=== PATIENT | female | born 1990 | race Caucasian/White ===

== ENCOUNTER → 2020-03-27 18:17 | Outpatient (BNVA) | payer OTHER, SELFPAY | PROVIDERS: Visit Provider Nurse Practitioner Family | DX: Z11.59 Encounter for screening for other viral diseases (principal) | CPT/HCPCS: 87635 ==

== ENCOUNTER → 2020-06-24 18:00 | Outpatient (BNVA) | payer OTHER, SELFPAY | PROVIDERS: Visit Provider Nurse Practitioner Family | DX: Z20.828 Contact with and (suspected) exposure to other viral communicable diseases (principal) | CPT/HCPCS: 87426 ==

== ENCOUNTER → 2020-10-28 15:04 | Outpatient (BNVA) | payer SELFPAY | DX: J02.9 Acute pharyngitis, unspecified (principal) | CPT/HCPCS: 87071; 87880 ==

== ENCOUNTER → 2020-12-24 10:55 | Outpatient (BNVA) | payer OTHER, SELFPAY | PROVIDERS: Visit Provider Nurse Practitioner Family | DX: Z20.822 Contact with and (suspected) exposure to COVID-19 (principal) | CPT/HCPCS: 87426 ==

== ENCOUNTER 2021-07-28 08:23 | Emergency (ER) | payer OTHER, SELFPAY ==
[2021-07-28 08:24] VITALS: BP 120/80; PULSE 87; RESP 18; TEMP 36.8; O2SAT 100; BMI 33.6
--- NOTE | 2021-07-28 08:34 | XR_ITS ---
WS: [id number] PORTABLE CHEST HISTORY: dyspnea/cough COMPARISON: None available. Lungs are clear and well expanded. No pleural effusion or pneumothorax. Cardiac size: Normal. Mediastinum/Aorta: Normal mediastinum. No osseous abnormality seen. XR/XR chest 1V portable [id number] IMPRESSION: Unremarkable portable chest.
[2021-07-28] MEDS: famotidine 20 mg/2 mL INJ 40 MG IVP (08:48)
[2021-07-28] MEDS: dexamethasone 10 mg/mL INJ IVP (08:48)
[2021-07-28 08:57] LABS: Basophils % 0.2 %; Eosinophils # 0.1 10^3/uL (0.0-0.8); Eosinophils % 0.7 %; Hematocrit 39.8 % (37.0-47.0); Hemoglobin 13.2 g/dL (11.5-15.3); Lymphocytes # 3.5 10^3/uL (0.8-4.8); Mean Corpuscular HGB Conc 33.2 g/dL (30.0-36.0); Mean Corpuscular Hemoglobin 30.3 pg (28.0-34.0); Mean Corpuscular Volume 91.3 fl (81-99); Mean Platelet Volume 9.2 fL (7.4-10.4); Monocytes # 0.9 10^3/uL (0.2-0.9); Monocytes % 6.4 %; Neutrophils # 9.95 10^3/uL (1.8-7.7); Neutrophils % 68.3 %; Nucleated Red Blood Cells % 0 %; Platelet Count 373 10^3/cmm (130-400); Red Blood Count 4.36 10^6/uL (4.1-5.3); Red Cell Distribution Width 13.2 % (12.1-15.1); White Blood Count 14.6 10^3/uL (4.0-10.0)
[2021-07-28 09:12] LABS: ABG PCO2 37.1 mmHg (35-45); ABG PH Result 7.42 (7.35-7.45); Alveolar-Arterial Oxygen Gradi 7.3 mmHg (5-10); Arterial Blood Gas Hematocrit 38.9 % (37-47); Base Excess ABG 0.1 mmol/L (-2.0-2.0); Blood Gas Operator Identificat glc; Blood Gas Sample Site Brachial, right; Carboxyhemoglobin 0.9 %THgb (0.4-20.1); HCO3 ABG 24.3 mmol/L (22-26); HGB O2 Sat 78.6 % (95-100); Ionized Calcium Level - ABG 1.2 mmol/L (1.1-1.4); Methemoglobin 0.7 % (0.4-1.5); Oxygen Device ROOM AIR; PO2 ABG 48.7 mmHg (80.0-100.0); Potassium Level - ABG 3.7 mmol/L (3.5-5.0); Total Hemoglobin 12.7 g/dL (12-16)
[2021-07-28 09:19] LABS: Alanine Aminotransferase 20 U/L (0-33); Albumin Level 4.5 g/dL (3.5-5.2); Alkaline Phosphatase 61 IU/L (35-105); Anion Gap 15.6 (5-19); Aspartate Amino Transferase 12 U/L (0-32); Blood Urea Nitrogen 11 mg/dL (6-20); Calcium 9.3 mg/dL (8.5-10.5); Carbon Dioxide 22 mmol/L (22-29); Chloride 106 mmol/L (98-107); Globulin 2.5 g/dL (1.3-4.6); Glomerular Filtration Rate 98.9 mL/min (90-130); Glucose 91 mg/dL (65-115); Osmolality Calculated 289 mOsm/kg (285-295); Potassium 3.6 mmol/L (3.5-5.1); Sodium 140 mmol/L (136-145); Total Bilirubin 0.2 mg/dL (0.15-1.2)
--- NOTE | 2021-07-28 09:55 | W.ED.ALLEREA ---
HPI - Allergic Reaction General: Chief complaint: Allergic Reaction Stated complaint: ALLERGIC RXN Time Seen by Provider: 07/28/21 08:25 Source: patient Mode of arrival: EMS Limitations: no limitations History of Present Illness: HPI narrative: 31-year-old female presents emergency room via EMS complaining of a rash. She was seen 2 days ago at an outside emergency room and was given steroids antihistamines. She has an isolated rash on the forearm. She is here in primary care doctor they did do some lab testing evidently had ordered an EpiPen but she had not picked that up. This morning the rash on her arms was worse. She did not use the EpiPen she had taken some Benadryl and the steroid she had been given unknown specifically what triggered the event. MD complaint: allergic reaction and hives Onset (ago): day(s) Exposure: unknown Associated symptoms: Reports itching and lip swelling; Deny abdominal pain, difficulty breathing, dysphagia, dizziness, facial swelling, hoarseness, nausea, rash, tongue swelling or vomiting Severity: mild Treatment prior to arrival: benadryl and steroids Previous Allergic Reaction History: prior ED visit(s) Review of Systems Const: Denies: fever(s), chills, body aches, change in appetite, fatigue or malaise ENMT: Denies: hoarseness Card: Denies: chest pain, edema, dyspnea on exertion or orthopnea Resp: Denies: dyspnea, productive cough or non-productive cough GI: Denies: abdominal pain, nausea, vomiting or dysphagia : Denies: flank pain, difficulty voiding, dysuria, urinary frequency or urinary urgency Skin/Breast: Denies: rash or pruritus Neuro: Denies: dizziness All/Imm: Denies: tongue swelling or facial swelling PFSH ED PFSH: Medical History (Updated 07/28/21 @ 15:08 by Corby Rushing DO) Allergic reaction Social History (Updated 10/28/20 @ 14:57 by Lotus Eric LPN) Smoking and tobacco status: never smoked Physical Exam Const: COMMON NORMALS: no acute distress GENERAL APPEARANCE: cooperative and comfortable ORIENTATION/CONSCIOUSNESS: Yes awake, Yes oriented to person, Yes oriented to place and Yes oriented to time HENMT: COMMON NORMALS: normocephalic, atraumatic, hearing grossly normal bilaterally, external ears normal, EAC's normal, TM's normal bilaterally, Normal nasal mucous membranes and turbinates present, moist oral mucous membranes and oropharynx normal HEAD & SCALP: normocephalic and atraumatic NOSE: Normal nasal mucous membranes and turbinates present EXTERNAL EAR: Yes external ears normal EXTERNAL AUDITORY CANAL: EAC's normal TYMPANIC MEMBRANE: TM's normal bilaterally Eye: COMMON NORMALS: Equal, round and reactive pupils present, EOMs intact bilaterally, conjunctivae normal and no scleral icterus CONJUNCTIVA: Yes conjunctivae normal PUPIL: Yes Equal, round and reactive pupils present OTHER: Mild swelling of the upper lip Neck/C-Spine: COMMON NORMALS: full ROM, no lymphadenopathy, supple and no JVD Resp: COMMON NORMALS: normal respiratory effort, No retractions, No use of accessory muscles and clear to auscultation bilaterally AUSCULTATION: clear to auscultation bilaterally Cardio: COMMON NORMALS: no JVD, regular rate, regular rhythm and No murmurs present (Cardio) RATE: regular rate RHYTHM: regular rhythm GI: COMMON NORMALS: Soft to palpation and No hepatosplenomegaly present AUSCULTATION: Yes normoactive bowel sounds PALPATION: Yes Soft to palpation, No Tenderness to palpation present (GI), No Guarding due to palpation present (GI) and Yes No hepatosplenomegaly present Extremity: COMMON NORMALS: normal to inspection, capillary refill normal, no clubbing, cyanosis or edema, no calf tenderness and no pedal edema Neuro: SENSORIUM/ORIENTATION: Yes oriented to person, Yes oriented to place and Yes oriented to time Skin: OTHER: Urticarial wheal and flare on the forearms prickly on the volar surface bilaterally extending medially to the distal portion of the upper arm. None on the trunk at this time patient reports some in the groin creases none on the lower extremities. Course Vital Signs: Vital signs: Vital Signs Temperature 98.3 F 07/28/21 08:24 Pulse Rate 87 07/28/21 08:24 Respiratory Rate 18 07/28/21 08:24 Blood Pressure 120/80 07/28/21 08:24 Pulse Oximetry 100 07/28/21 08:24 MDM - Allergic Reaction Medical Decision Making FacialPatient has no wheezing or rhonchi swelling little bit restricted to the upper lip but very mild no oropharyngeal swelling there is no stridor. He monitored for times not had any difficulty breathing or with of respiratory compromise. At this point do not think epinephrine would be indicated and think she can safely be discharged home continue antihistamines or can increase her steroids she is a little frustrated with this. And I do understand her concern and spent a long time discussing recommend significantly increasing the steroid dose and doing a longer taper. Encouraged her to follow-up with her primary care doctor to get set up with an food service steward if any worsening or change symptoms return. Medical Records I reviewed the patient's medical records. Lab Data I reviewed the patient's lab results. : 07/28/21 08:28 07/28/21 08:28 Radiology Impressions Chest X-Ray 07/28/21 08:34 IMPRESSION: Unremarkable portable chest. Laboratory Results WBC 14.6 10^3/uL (4.0-10.0) H 07/28/21 08:28 RBC 4.36 10^6/uL (4.1-5.3) 07/28/21 08:28 Hgb 13.2 g/dL (11.5-15.3) 07/28/21 08:28 Hct 39.8 % (37.0-47.0) 07/28/21 08:28 MCV 91.3 fl (81-99) 07/28/21 08:28 MCH 30.3 pg (28.0-34.0) 07/28/21 08:28 MCHC 33.2 g/dL (30.0-36.0) 07/28/21 08:28 RDW 13.2 % (12.1-15.1) 07/28/21 08:28 Plt Count 373 10^3/cmm (130-400) 07/28/21 08:28 MPV 9.2 fL (7.4-10.4) 07/28/21 08:28 Neut % (Auto) 68.3 % 07/28/21 08:28 Lymph % (Auto) 24.0 % 07/28/21 08:28 [place] % (Auto) 6.4 % 07/28/21 08:28 Eos % (Auto) 0.7 % 07/28/21 08:28 Baso % (Auto) 0.2 % 07/28/21 08:28 Neut # (Auto) 9.95 10^3/uL (1.8-7.7) H 07/28/21 08: Lymph # (Auto) 3.5 10^3/uL (0.8-4.8) 07/28/21: [place] # (Auto) 0.9 10^3/uL (0.2-0.9) 07/28/21 08: Eos # (Auto) 0.1 10^3/uL (0.0-0.8) 07/28/21: Baso # (Auto) 0.0 10^3/uL (0.0-0.1) 07/28/21: Nucleated RBC % (auto) 0 % 07/28/21: Nucleated RBCs # 0.0 /100WBC 07/28/21: Specimen Type Venous 07/28/21 09:04 Sample Site Brachial, right 07/28/21 09:04 ABG pH 7.42 (7.35-7.45) 07/28/21 09:04 ABG pCO2 37.1 mmHg (35-45) 07/28/21 09:04 ABG pO2 48.7 mmHg (80.0-100.0) L 07/28/21 09:04 ABG HCO3 24.3 mmol/L (22-26) 07/28/21 09:04 ABG O2 Saturation 80.0 07/28/21 09:04 ABG Base Excess 0.1 mmol/L (-2.0-2.0) 07/28/21 09:04 Fred Test N/a 07/28/21 09:04 A-a O2 Gradient 7.3 mmHg (5-10) 07/28/21 09:04 Hematocrit 38.9 % (37-47) 07/28/21 09:04 Hgb O2 Saturation 78.6 % (95-100) L 07/28/21 09:04 Carboxyhemoglobin 0.9 %THgb (0.4-20.1) 07/28/21 09:04 Methemoglobin 0.7 % (0.4-1.5) 07/28/21 09:04 Total Hemoglobin 12.7 g/dL (12-16) 07/28/21 09:04 Sodium 142.0 mmol/L (131-143) 07/28/21 09:04 Potassium 3.7 mmol/L (3.5-5.0) 07/28/21 09:04 Glucose 87.0 mg/dL (70-115) 07/28/21 09:04 Ionized Calcium 1.2 mmol/L (1.1-1.4) 07/28/21 09:04 O2 Delivery Device Room air 07/28/21 09:04 FiO2 21.0 % 07/28/21 09:04 Medical I D Sales ID glc 07/28/21 09:04 Sodium 140 mmol/L (136-145) 07/28/21 08:28 Potassium 3.6 mmol/L (3.5-5.1) 07/28/21 08:28 Chloride 106 mmol/L (98-107) 07/28/21 08:28 Carbon Dioxide 22 mmol/L (22-29) 07/28/21 08:28 Anion Gap 15.6 (5-19) 07/28/21 08:28 BUN 11 mg/dL (6-20) 07/28/21 08:28 Creatinine 0.7 mg/dL (0.5-0.9) 07/28/21 08:28 GFR Calculation 98.9 mL/min (90-130) 07/28/21 08:28 Glucose 91 mg/dL (65-115) 07/28/21 08:28 Calculated Osmolality 289 mOsm/kg (285-295) 07/28/21 08:28 Calcium 9.3 mg/dL (8.5-10.5) 07/28/21 08:28 Total Bilirubin 0.2 mg/dL (0.15-1.2) 07/28/21 08:28 AST 12 U/L (0-32) 07/28/21 08:28 ALT 20 U/L (0-33) 07/28/21 08:28 Alkaline Phosphatase 61 IU/L (35-105) 07/28/21 08:28 Total Protein 7.0 g/dL (6.6-8.7) 07/28/21 08:28 Albumin 4.5 g/dL (3.5-5.2) 07/28/21 08:28 Globulin 2.5 g/dL (1.3-4.6) 07/28/21 08:28 Discharge Plan Discharge Patient Disposition: Home Clinical Impression: Allergic reaction Condition: Stable Prescriptions: New prednisone 20 mg tablet 20 mg PO TID Qty: 30 0RF Rx Instructions: 2 po BID x 5 days, 1 po tID x 5 days, 1 po BID x 3days, 1 po qd x 3 days EpiPen 2-Luciano 0.3 mg/0.3 mL auto-injector 0.3 mg IM Q10M PRN (Reason: anaphylaxis) Qty: 2 0RF Rx Instructions: not to exceed 6 doses per episode Discharge Orders: Discharge ED (Routine); Ordered 07/28/21 Ordered By: Corby Rushing Activity Restrictions/Additional Instructions: Increase steroids as prescription is written for. Continue to use hydroxyzine as needed. Follow-up with your primary care doctor to discuss possible referral to food service steward. You were given patient instructions on anaphylaxis for education for what to watch for. There was no signs of an anaphylactic reaction at the time you were seen in the emergency room today. This will help guide you as to when to use the epinephrine pen. Return if you have worsening problems particularly difficulty breathing. Coding Level of Care Code ED Supervisor [employer] for Stephanie Elias
[2021-07-28 10:35] LABS: Blood Gas Sample Type Venous
[2021-07-28] MEDS: diphenhydrAMINE 50 mg/mL SDV 1mL IM (11:16)
== END 2021-07-28 11:54 | disposition home or self-care (01) ==
PROVIDERS: Emergency Provider Family Medicine
DX: T78.40XA Allergy, unspecified, initial encounter (principal)
CPT/HCPCS: 36600; 71045; 80051; 80053; 82330; 82805; 85025; 96372; 96374; 96375; 99283; J1100; J1200; J3490

== ENCOUNTER → 2021-12-29 11:21 | Outpatient (BNVA) | payer OTHER, SELFPAY | PROVIDERS: Visit Provider Registered Nurse | DX: Z01.419 Encounter for gynecological examination (general) (routine) without abnormal findings (principal); I10 Essential (primary) hypertension | CPT/HCPCS: 88175 ==

== ENCOUNTER → 2022-01-21 11:44 | Outpatient (BNVA) | payer OTHER, SELFPAY | PROVIDERS: Visit Provider Registered Nurse | DX: Z91.018 Allergy to other foods (principal); T78.1XXA Other adverse food reactions, not elsewhere classified, initial encounter; Z71.3 Dietary counseling and surveillance; I10 Essential (primary) hypertension | CPT/HCPCS: 85025; 86003; 86008 ==

== ENCOUNTER 2022-11-04 15:07 | Outpatient (CLI) | payer OTHER, SELFPAY ==
[2022-11-04 16:20] LABS: Basophils # 0.1 10^3/uL (0.0-0.1); Basophils % 0.7 %; Eosinophils # 0.2 10^3/uL (0.0-0.8); Eosinophils % 3.1 %; Hematocrit 38.9 % (37.0-47.0); Hemoglobin 13.2 g/dL (11.5-15.3); Lymphocytes # 2.3 10^3/uL (0.8-4.8); Lymphocytes % 30.9 %; Mean Corpuscular HGB Conc 33.9 g/dL (30.0-36.0); Mean Corpuscular Volume 88.4 fl (81-99); Mean Platelet Volume 9.6 fL (7.4-10.4); Monocytes # 0.5 10^3/uL (0.2-0.9); Monocytes % 6.2 %; Nucleated Red Blood Cells % 0 %; Platelet Count 354 10^3/cmm (130-400); Red Cell Distribution Width 12.7 % (12.1-15.1); White Blood Count 7.5 10^3/uL (4.0-10.0)
[2022-11-04 16:31] LABS: Ferritin 29 ng/mL (15-150)
== END 2022-11-04 15:08 | disposition home or self-care (01) ==
LOC: LAB 15:32
PROVIDERS: PCP Nurse Practitioner Family; Visit Provider Nurse Practitioner Family
DX: Z01.89 Encounter for other specified special examinations (principal)
CPT/HCPCS: 82728; 85025

== ENCOUNTER 2024-10-12 10:38 | Outpatient (CLI) | payer BC, SELFPAY ==
[2024-10-12 11:31] LABS: Basophils # 0.1 10^3/uL (0.0-0.1); Basophils % 0.6 %; Eosinophils # 0.2 10^3/uL (0.0-0.8); Eosinophils % 1.9 %; Hematocrit 37.9 % (36-47); Lymphocytes % 22.8 %; Mean Corpuscular Hemoglobin 30.6 pg (27-33); Mean Corpuscular Volume 89.8 fl (85-98); Mean Platelet Volume 9.1 fL (7.4-10.4); Monocytes # 0.6 10^3/uL (0.2-0.9); Monocytes % 6.7 %; Neutrophils # 5.83 10^3/uL (1.8-7.7); Neutrophils % 67.9 %; Nucleated Red Blood Cells % 0 %; Platelet Count 316 10^3/cmm (157-399); Red Blood Count 4.22 10^6/uL (3.85-5.65); Red Cell Distribution Width 12.6 % (12.1-15.1); White Blood Count 8.57 10^3/uL (3.29-11.43)
[2024-10-12 11:55] LABS: Alanine Aminotransferase 14 U/L (0-33); Albumin Level 4.4 g/dL (3.5-5.2); Alkaline Phosphatase 45 U/L (35-105); Anion Gap 15.8 (5-19); Aspartate Amino Transferase 16 U/L (0-32); Blood Urea Nitrogen 13 mg/dL (6-20); Calcium 9.3 mg/dL (8.5-10.5); Carbon Dioxide 22 mmol/L (22-29); Chloride 104 mmol/L (98-107); Chol HDL Ratio 3.15 mg/dL (0.0-4.40); Cholesterol 151 mg/dL (0-200); Ferritin 37 ng/mL (15-150); Globulin 2.9 g/dL (1.3-4.6); Glomerular Filtration Rate 115.9 mL/min (90-130); Glucose 92 mg/dL (65-115); HDL Cholesterol 48 mg/dL (60-100); Iron 123 ug/dL (37-145); LDL Cholesterol Calculated 89 mg/dL (50-129); LDL HDL Ratio 1.85 RATIO (0.00-3.22); Lactate Dehydrogenase 106 U/L (135-214); Magnesium 1.9 mg/dL (1.7-2.3); Osmolality Calculated 286 mOsm/kg (285-295); Potassium 3.8 mmol/L (3.5-5.1); Sodium 138 mmol/L (136-145); Total Bilirubin 0.3 mg/dL (0.15-1.2); Total Iron Binding Capacity 361 mcg/dl; Total Protein 7.3 g/dL (6.6-8.7); Triglycerides 71 mg/dL (0-150); Unsaturated Iron Binding 238 ug/dL (112-347)
[2024-10-12 12:10] LABS: 25 Hydroxy Vitamin D 25 ng/mL (30-100)
== END 2024-10-12 10:39 | disposition home or self-care (01) ==
PROVIDERS: PCP Nurse Practitioner Family; Visit Provider Nurse Practitioner Family
DX: Z00.00 Encounter for general adult medical examination without abnormal findings (principal)
CPT/HCPCS: 36415; 80053; 80061; 82248; 82306; 82728; 83540; 83550; 83615; 83735; 85025

== ENCOUNTER → 2025-01-02 12:39 | Outpatient (BNVA) | payer BC, SELFPAY | PROVIDERS: PCP Nurse Practitioner Family; Visit Provider Nurse Practitioner Women's Health | DX: R10.2 Pelvic and perineal pain (principal) | CPT/HCPCS: 81000; 87086; 87624 ==

== ENCOUNTER 2025-01-18 07:08 | Outpatient (CLI) | payer BC, SELFPAY ==
--- NOTE | 2025-01-18 07:15 | MR_ITS ---
WS: [id number] MRI PELVIS WITH AND WITHOUT CONTRAST. COMPARISON: None Multiplanar, multisequence imaging is performed with and without contrast. MultiHance 17 mL. History: Endometriosis, pelvic pain. No prior surgery. Uterus: Midline and retroflexed. Uterus measures 9.0 x 5.3 x 6.8 cm. Single component of adenomyosis noted measuring 5 mm along the posterior inferior endometrium. No fibroids are identified within the myometrium. Endometrium is normal at 4.3 mm in diameter. RIGHT ovary: Normal size ovary measures 4.2 x 2.0 x 2.4 cm. There are several small peripheral follicles scattered within the ovary. Complex follicle within the ovary. No T1 hyperintense signal within or surrounding the ovary. LEFT ovary/adnexa: There is a large heterogeneous mass in the LEFT adnexa which is inseparable from the ovary. This complex collection extends into the cul-de-sac. The ovary is probably part of this mass. There are T1 hyperintense foci in the LEFT adnexa. The largest T1 hyperintense focus 2.6 cm. Smaller foci of variable signal intensity in the LEFT adnexa one with a fluid/fluid level consistent with endometrioma. The entire adnexal mass measures 4.4 x 4.3 x 5.0 cm. Normal ovary contained within this collection is difficult to visualize. No additional T1 hyperintense foci were noted within the pelvis. No free fluid. No additional areas of abnormal enhancement within the pelvis. There is no mass. No GI tract obstruction. MR/MR pelvis wo/w con [id number] IMPRESSION: 1. Normal size uterus slightly retroverted. 2. Single focus of adenomyosis along the posterior inferior endometrium. 3. There is a large complex mass within the LEFT adnexa extending into the cul -de-sac with T1 hyperintense foci consistent with collection of endometriosis. The ovary is not identified as a separate structure. This entire LEFT ovarian/a dnexal endometrioma collection measures 4.4 x 4.3 x 5.0 cm. 4. No free fluid. 5. No additional foci in the pelvis to suggest adjacent endometriomas.
[2025-01-18] MEDS: gadobenate dimeglumine 20 mL vial IV (09:17)
== END 2025-01-18 07:09 | disposition home or self-care (01) ==
PROVIDERS: PCP Nurse Practitioner Family; Visit Provider Nurse Practitioner Women's Health
DX: N80.9 Endometriosis, unspecified (principal); R10.2 Pelvic and perineal pain; R93.89 Abnormal findings on diagnostic imaging of other specified body structures
CPT/HCPCS: 72197

== ENCOUNTER 2025-02-20 15:29 | Outpatient (CLI) | payer BC, SELFPAY ==
[2025-02-20 17:40] LABS: Thyroid Stimulating Hormone 0.72 uIU/mL (0.27-4.20)
== END 2025-02-20 15:30 | disposition home or self-care (01) ==
LOC: LAB 15:38
PROVIDERS: PCP Nurse Practitioner Family; Visit Provider Family Medicine
DX: E04.9 Nontoxic goiter, unspecified (principal)
CPT/HCPCS: 36415; 84443

== ENCOUNTER 2025-03-08 19:04 | Outpatient (CLI) | payer BC, SELFPAY ==
[2025-03-09 00:46] LABS: Free T4 Free Thyroxine 1.28 ng/dL (0.82-1.77)
[2025-03-13 15:19] LABS: Thyroid Peroxidase Antobodies 1 IU/mL (<9)
== END 2025-03-08 19:05 | disposition home or self-care (01) ==
PROVIDERS: PCP Nurse Practitioner Family; Visit Provider Family Medicine
DX: Z01.89 Encounter for other specified special examinations (principal)
CPT/HCPCS: 36415; 84439; 84481; 86376; 86800

== ENCOUNTER 2025-03-10 16:03 | Outpatient (CLI) | payer BC, SELFPAY ==
--- NOTE | 2025-03-10 16:18 | XRR_ITS ---
PROCEDURE INFORMATION: Exam: XR Abdomen Exam date and time: 03/10/2025 4:24 PM Age: 35 years old Clinical indication: Other: Access for impaction TECHNIQUE: Imaging protocol: Radiologic exam of the abdomen. Views: 2 Views. Upright and supine views. COMPARISON: MR pelvis wo/w con [id number] 01/18/2025 7:31 AM FINDINGS: Gastrointestinal tract: Normal. No bowel dilation. Intraperitoneal space: Normal. No free air. Bones/joints: Unremarkable for age. XR/XR acute abdomen series [id number] IMPRESSION: No acute findings.
== END 2025-03-10 16:04 | disposition home or self-care (01) ==
PROVIDERS: PCP Nurse Practitioner Family; Visit Provider Nurse Practitioner Family
DX: K56.41 Fecal impaction (principal)
CPT/HCPCS: 74022

== ENCOUNTER 2025-03-30 23:49 | Emergency (ER) | payer BC, SELFPAY ==
[2025-03-30 23:51] VITALS: BP 148/95; PULSE 72; RESP 16; TEMP 36.7; O2SAT 100; BMI 28.6
--- OUTSIDE RECORDS SUMMARY | 2025-03-30 23:55 | XMS_ITS | Clinical Summary ---
Author Organization [facility] Address [address] [place] [address] Phone Care Team Providers Care Apple Press Operator Name Role Phone Sylwia Bryant [facility] Primary Care Provider + Allergies Active Allergy Reactions Criticality Noted Date Comments Znmrl-P-Hrpblyybhbgwi Other 06/01/2023 Alpha-Gal (Hqozxtpiw-Dyswq-2,3-Galact ose) Unknown 01/02/2025 Bupropion Anaphylaxis High 06/01/2023 Other Reaction(s): ALGY-Difficulty Breathing Gelatin Other Low 07/19/2022 Other Reaction(s): Abdominal Pain Losartan Other Low 07/19/2022 Other Reaction(s): Abdominal Pain Bupropion Hcl Anaphylaxis High 06/01/2023 Azithromycin Other Medium 06/01/2023 Lips burned and blistered Medications EPINEPHrine (Epipen) 0.3 mg/0.3 mL injection syringeIndicat ions:Food allergy Inject 0.3 mL (0.3 mg total) into the shoulder, thigh, or buttocks if needed for anaphylaxis. Call 911 after use. 2 each 3 Active Additional Information Patient not taking.Informant: Self, Reported on 02/22/2025 metoprolol tartrate (Lopressor) 25 mg tablet Take 12.5 mg by mouth 1 (one) time each day. 3 Active methylphenidat e (Ritalin) 5 mg tablet Take 5 mg by mouth 2 (two) times a day. 5 Active HYDROcodone-ac etaminophen (Angola) 5-325 mg tablet Take 1 tablet by mouth every 6 (six) hours if needed. Active desvenlafaxine (Pristiq) 50 mg 24 hr tablet Take 50 mg by mouth 1 (one) time each day. Active gabapentin (Neurontin) 100 mg capsule Take 100 mg by mouth 3 (three) times a day. Active oxyCODONE (Roxicodone) 5 mg immediate release tabletIndicati ons:pain Take 1 tablet (5 mg total) by mouth every 6 (six) hours if needed for severe pain (7-10) for up to 10 doses. 10 tablet Active Additional Information Patient not taking.Reported on 02/22/2025 methylPREDNISo lone (Medrol Dospak) 4 mg tabletsIndicat ions:Hives Follow schedule on package instructions 21 tablet 5 03/01/20 Active Problems Problem Noted Date Diagnosed Date Hives 02/22/2025 Left ovarian cyst 01/29/2025 Endometriosis 10/03/2024 Pelvic pain 05/04/2023 Dysmenorrhea 05/04/2023 Encounters Date Type Department Care Team Description 02/22/2025 3:00 PM CDT [facility] [address] [address] Elbert Ortez MD Multiple thyroid nodules (Primary Dx) 02/22/2025 Orders Only [facility] [address] [address] Gemma Macias NP Hives (Primary Dx) 02/21/2025 Telephone [facility] [address] [address] Elbert Ortez MD ultra sound images 02/08/2025 Telephone [facility] [address] [address] New Kelly MD ED report 02/07/2025 2:06 PM CDT - 02/07/2025 4:19 PM CDT Emergency [facility] Emergency Department [address] [address] Discharge Disposition: Left Without Being Seen 02/07/2025 1:30 PM CDT Office Visit [facility] [address] [place] [address] New Kelly MD Postoperative examination (Primary Dx); Weakness of both lower extremities; SOB (shortness of breath) 02/01/2025 1:35 PM CDT - 02/01/2025 3:15 PM CDT Surgery OPERATING ROOM-[address] [address] New Kelly MD ROBOTIC ASSISTED DIAGNOSTIC LAPAROSCOPY [22758 (CPT )] 02/01/2025 1:27 PM CDT Anesthesia Event OPERATING ROOM-[address] [address] Richmond Gant, Baudilio Alberts, SENIOR AUTOMATION ENGINEER 02/01/2025 9:44 AM CDT - 02/01/2025 4:30 PM CDT Hospital Encounter OPERATING ROOM-[address] [address] New Kelly MD Endometriosis (Primary Dx); Pelvic pain; Left ovarian cyst; Dysmenorrhea Discharge Disposition: Discharged to Home or Self Care (Routine Discharge) 01/28/2025 2:30 PM CDT Office Visit [facility] BU[facility] [address] [place] [address] New Kelly MD Endometriosis (Primary Dx); Pelvic pain; Left ovarian cyst 01/24/2025 Telephone [facility] [address] [place] [address] New Kelly MD earlier appt 01/18/2025 Telephone [facility] [address] [place] [address] New Kelly MD mass on ovary 01/01/2025 9:40 AM CDT Lab LAB [address] [address] Fatigue (Primary Dx) from Last 3 Months Family History Medical History Relation Comments Hypertension Father Cancer Maternal Grandfather No Known Problems Mother Cancer Paternal Grandmother Anesthesia problems Neg Hx Breast cancer Neg Hx Colon cancer Neg Hx Malig Hypertension Neg Hx Ovarian cancer Neg Hx Uterine cancer Neg Hx Relation Status Comments Father Alive Maternal Grandfather Mother Alive Paternal Grandmother Social History Tobacco Use Types Packs/Day Years Used Date Smoking Tobacco: Former Cigarettes 0.5 6 2 005 - 2011 Passive Smoke Exposure: Past Smokeless Tobacco: Never Tobacco Cessation:Counseling Given: Not Answered Alcohol Use Standard Drinks/Week Comments Not Currently 0 (1 standard drink = 0.6 oz pur e alcohol) PHQ-2 Answer Date Recorded Patient Health Questionnaire-2 Score 0 01/28/2025 [facility] - Mental Health Answer Date Recorde d Little interest or pleasure in doing things Not at all 01/28/2025 Feeling down, depressed, or hopeless Not at all 01/28/2025 Feeling of Stress Not on file 01/28/2025 AUDIT-C Answer Date Recorded Q1: How often do you have a drink containing alcohol? Monthly or less 01/30/2025 Q2: How many drinks containi ng alcohol do you have on a typical day when you are drinking? Patient does not drink Q3: How often do you have si x or more drinks on one occasion? Never 01/30/2025 Comments No Sex and Gender Information Value Date Recorded Sex Assigned at Not on file Legal Sex Female 11:24 AM CDT Gender Identity Not on file Sexual Orientation Not on file Last Filed Vital Signs Vital Sign Reading Time Taken Comments Blood Pressure 137/87 02/22/2025 2:55 PM CDT Pulse 59 02/22/2025 2:55 PM CDT Temperature 36.4 C (97.6 F) 02/22/2025 2:55 PM CDT Respiratory Rate 19 02/22/2025 2:55 PM CDT Oxygen Saturation 99% 02/22/2025 2:55 PM CDT Inhaled Oxygen Concentration - - Weight 77.1 kg (170 lb) 02/22/2025 2:55 PM CDT Height 160 cm (5' 3 ) 02/22/2025 2:55 PM CDT Body Mass Index 30.11 02/22/2025 2:55 PM CDT Plan of Treatment Upcoming Encounters Date Type Department Care Team (Latest Contact Info) Description 04/03/2025 4:15 PM CUTTER MACHINE Office Visit [facility] [address] [place] [address] New Kelly MD [address] [place] [phone] 04/23/2025 9:30 AM CUTTER MACHINE Office Visit [facility] MEDICAL OFFICE [address] [address] New Kelly MD [address] [place] [phone] 04/23/2025 10:00 AM CUTTER MACHINE Appointment PREADMISSION TESTING - MOB [address] [place] [phone] 05/03/2025 7:30 AM CUTTER MACHINE Hospital Encounter OPERATING ROOM-[address] [address] New Kelly MD [address] [place] [phone] 05/03/2025 7:30 AM CUTTER MACHINE - 05/03/2025 9:20 AM CUTTER MACHINE Surgery OPERATING ROOM-[address] [address] New Kelly MD [address] [place] [phone] ROBOTIC LAP HYSTERECTOMY [[id number] (CPT )] 06/14/2025 9:30 AM CUTTER MACHINE Office Visit [facility] MEDICAL OFFICE [address] [address] Gemma Ma NP [address] [place] [phone] Scheduled Procedures Name Priority Associated Diagnoses Date/Ti sd ROBOTIC LAP HYSTERECTOMY Endometriosis Pelvic pain 05/03/2025 7:30 AM CUTTER MACHINE ROBOTIC LAP SALPINGECTOMY Endometriosis Pelvic pain 05/03/2025 7:30 AM CUTTER MACHINE Health Maintenance Due Date Last Done Comments Lipid Panel 1992 MMR Vaccines (1 of 1 - Standard series) 01/13/1993 Varicella Vaccines (1 of 2 - 13+ 2-dose series) 01/13/2005 Social Drivers of Health (SDoH) 01/13/2010 Hepatitis A Vaccines (1 of 2 - Risk 2-dose series) 01/13/2011 Hepatitis B Vaccines (1 of 3 - 19+ 3-dose series) 01/13/2011 Pap Smear 01/13/2013 HPV Vaccines (1 - 3-dose SCDM series) 01/13/2019 Cervical Cancer Screening 01/13/2022 HPV/Cotest 01/13/2022 COVID-19 Vaccine ( - season) 2025 Influenza Vaccine (#1) 2025 02/27/2015 Creatinine Level 01/01/2026 01/01/2025 Potassium Level 01/01/2026 01/01/2025 Depression Screening 01/29/2026 01/28/2025 DTaP,Tdap,and Td Vaccines (8 - Td or Tdap) 11/26/2032 11/26/2022, 05/22/2015, 10/02/1997, Additional history exists Pneumococcal Vaccine: 50+ Years (1 of 1 - PCV) 01/13/2042 Zoster Vaccines (1 of 2) 01/13/2042 RSV Vaccines (1 - 1-dose 75+ series) 01/13/2067 IPV Vaccines Completed 10/02/1997, 03/24, 1992, Additional history exists HIB Vaccines Aged Out No longer eligi ble based on patient's age to complete this topic Meningococcal B Vaccine Aged Out No l onger eligible based on patient's age to complete this topic Meningococcal Vaccine Aged Out No zaid génesis eligible based on patient's age to complete this topic Pneumococcal Vaccine Aged Out No long er eligible based on patient's age to complete this topic Rotavirus Vaccines Aged Out No longer eligible based on patient's age to complete this topic Goals Goal Patient Goal Type Associated Problems Recent Progress Patient-Stated? Author Autogenerat ed Goal Care Plan Autogenerated Problem No New Kelly MD Procedures Procedure Name Priority Date/Time Associated Diagnosis Comments ECG 12-LEAD STAT 02/07/2025 5:00 PM CDT IA AN ELECTIVE ENDOTRACHEAL AIRWAY Routine 02/01/2025 1:38 PM CDT IA LAPS ABD PRTM&OMENTUM DX W/WO SPEC BR/WA SPX 02/01/2025 1:29 PM CDT Endometriosis Pelvic pain Left ovarian cyst Special Needs Please have posterior cul de sac catheter available. , URINE STAT 02/01/2025 10:0 0 AM CDT IRON BINDING CAPACITY Routine 01/01/2025 10:22 AM CDT Fatigue IRON Routine 01/01/2025 10:22 AM CDT Fatigue CBC WITH AUTO DIFFERENTIAL Routine 01/01/2025 10:22 AM CDT Fatigue C-REACTIVE PROTEIN Routine 01/01/2025 10 :22 AM CDT Fatigue VITAMIN B12 Routine 01/01/2025 10:22 AM CDT Fatigue VITAMIN D 25 HYDROXY Routine 01/01/2025 10:22 AM CDT Fatigue SEDIMENTATION RATE Routine 01/01/2025 10 :22 AM CDT Fatigue FERRITIN Routine 01/01/2025 10:22 AM CDT Fatigue IRON AND TIBC Routine 01/01/2025 10:22 AM CDT Fatigue MAGNESIUM Routine 01/01/2025 10:22 AM CDT Fatigue LACTATE DEHYDROGENASE Routine 01/01/2025 10:22 AM CDT Fatigue BILIRUBIN, DIRECT Routine 01/01/2025 10: 22 AM CDT Fatigue CBC AND AUTO DIFFERENTIAL Routine 01/01/2025 10:22 AM CDT Fatigue COMPREHENSIVE METABOLIC PANEL Routine 01/01/2025 10:22 AM CDT Fatigue URINE CULTURE Routine 01/01/2025 10:22 AM CDT Fatigue from Last 3 Months Results * ECG 12 lead (02/07/2025 5:00 PM CDT) 02/07/2025 5:00 PM CDT Narrative [facility] - 02/07/2025 5:00 PM CDT Interpretive Statements Sinus rhythm Electronically Signed On 02-07-2025 17:00:02 CDT by José Mendoza MD Procedure Note José Mendoza MD - 02/07/2025 Interpretive Statements Sinus rhythm Electronically Signed On 02-07-2025 17:00:02 CDT by José Mendoza MD us Owen Camacho DO ECG ORDERABLES Edited Resul t - Final [facility] [address] [address] * IA AN ELECTIVE ENDOTRACHEAL AIRWAY (02/01/2025 1:38 PM CDT) Narrative Richmond Gant CRNA - 02/01/2025 1:38 PM CDT Richmond Gant CRNA 02/01/2025 1:50 PM Airway Date/Time: 02/01/2025 1:38 PM Reason: elective Airway not difficult General Information and Staff Patient location during procedure: OR Performed by: Richmond Gant CRNA Authorized by: New Kelly MD Patient Condition Indications for airway management: anesthesia Patient position: sniffing MILS maintained throughout Sedation level: deep Mask Ventilation Mask difficulty assessment: 1 - vent by mask Final Airway Details Preoxygenated: yes Final airway type: endotracheal airway Successful airway: ETT Cuffed: yes Successful intubation technique: direct laryngoscopy Adjuncts used in placement: intubating stylet Endotracheal tube insertion site: oral Blade: Og Blade size: #3 ETT size (mm): 7.0 Cormack-Lehane Classification: grade I - full view of glottis Placement verified by: chest auscultation and capnometry Measured from: teeth ETT to teeth (cm): 21 Ventilation between attempts: none Number of attempts at approach: 1 Number of other approaches attempted: 0 Additional Comments FELICIA Rizo New Kelly MD ANESTHESIA ORDERABLES Fin al Result * , urine (02/01/2025 10:00 AM CDT) [facility] URINE PREG TEST Negative Negative 02/01/2025 10:18 AM CDT [facility] Urine Urine specimen obtained by clean catch procedure / Unknown Non-blood Collection / Unknown 02/01/2025 10:00 AM CDT 02/01/2025 10:08 AM CDT New Kelly MD LAB URINE ORDERABLES Sosa l Result Performing Organization Address [facility] Co de Phone Number [facility] [address] [phone] * Iron Binding Capacity (01/01/2025 10:22 AM CDT) [facility] IRON BINDING CAPACITY 432 265 - 497 ug/dL LAB CHEMISTRY METHOD 01/01/2025 11:16 AM CDT [facility] Blood Venous blood specimen / Unknown Venipuncture / Unknown 01/01/2025 10:22 AM CDT 01/01/2025 10:22 AM CDT Dorian Angela DO LAB BLOOD ORDERABLES Sosa l Result Performing Organization Address City/[facility]/ZIP Co de Phone Number [facility] [address] [phone] * (ABNORMAL) CBC auto differential (01/01/2025 10:22 AM CDT) [facility] White Blood Count 6.7 4.0 - 11.4 K/mm3 01/01/2025 10:31 AM CDT [facility] Red Blood Count 4.16 3.93 - 5.22 M/mm3 01/01/2025 10:31 AM CDT [facility] Hemoglobin 12.6 11.2 - 15.7 g/dL 01/01/2025 10:31 AM [facility] Hematocrit 36.6 34.1 - 44.9 % 01/01/2025 10:31 AM [facility] Mean Cell Volume 88.1 81.6 - 97.4 fL 01/01/2025 10:31 AM [facility] MEAN CORPUSCULAR HEMOGLOBIN 30.3 26.7 - 32.8 pg 01/01/2025 10:31 AM [facility] Mean Corpuscular Hemoglobin Concentration 34.4 31.6 - 36.0 g/dL 01/01/2025 10:31 AM [facility] RED CELL DISTRIBUTION WIDTH-SD 40.7 35.6 - 49.5 fl 01/01/2025 10:31 AM [facility] Platelet Count 404 150 - 450 K/mm3 01/01/2025 10:31 AM [facility] Mean Platelet Volume 6.8(L) 7.0 - 10.2 fL 01/01/2025 10:31 AM [facility] ANC (AUTOMATED) 4.0 2.0 - 9.8 K/ul 01/01/2025 10:31 AM [facility] Lymphocytes % 30.7 10.1 - 46.5 % 01/01/2025 10:31 AM [facility] Monocytes % 5.9 3.2 - 12.9 % 01/01/2025 10:31 AM [facility] Neutrophils % 59.3 40.6 - 81.1 % 01/01/2025 10:31 AM [facility] Eosinophils % 3.0 0.0 - 4.2 % 01/01/2025 10:31 AM [facility] Basophils % 1.1 0.0 - 1.1 % 01/01/2025 10:31 AM [facility] Lymphocytes Absolute 2.1 0.6 - 3.6 K/uL 01/01/2025 10:31 AM [facility] Monocytes Absolute 0.4 0.3 - 1.1 K/uL 01/01/2025 10:31 AM [facility] Neutrophils Absolute 4.0 2.0 - 9.8 K/uL 01/01/2025 10:31 AM CDT [facility] Eosinophils Absolute 0.20 0.00 - 0.60 K/uL 01/01/2025 10:31 AM CDT [facility] Basophils Absolute 0.1 0.0 - 0.1 1000/uL 01/01/2025 10:31 AM CDT [facility] Nucleated RBC % 0.1 0.0 - 0.2 % 01/01/2025 10:31 AM CDT [facility] Nucleated RBC Absolute 0.00 0.00 - 0.03 K/ul 01/01/2025 10:31 AM CDT [facility] Blood Venous blood specimen / Unknown Venipuncture / Unknown 01/01/2025 10:22 AM CDT 01/01/2025 10:22 AM CDT Dorian Angela LAB BLOOD ORDERABLES Sosa l Result Performing Organization Address [facility]/ZIP Co de Phone Number [facility] [address] [address] * Vitamin D 25 hydroxy (01/01/2025 10:22 AM CDT) VITAMIN D 25-OH TOTAL 30.1 30.0 - 100.0 ng/mL 01/01/2025 11:07 AM CDT [facility] Blood Venous blood specimen / Unknown Venipuncture / Unknown 01/01/2025 10:22 AM CDT 01/01/2025 10:22 AM CDT Dorian Angela LAB BLOOD ORDERABLES Sosa l Result [facility] [address] [address] * Sedimentation Rate (01/01/2025 10:22 AM CDT) ERYTHROCYTE SEDIMENTATION RATE 6 0 - 20 mm/hr 01/01/2025 10:40 AM CDT [facility] Blood Venous blood specimen / Unknown Venipuncture / Unknown 01/01/2025 10:22 AM CDT 01/01/2025 10:22 AM CDT Dorian Chavez Angela LAB BLOOD ORDERABLES Sosa l Result Performing Organization Address [facility] de Phone Number [facility] [address] [place] [phone] * Urine culture (01/01/2025 10:22 AM CDT) Urine Culture No growth at 2 days ASHLEY 01/03/2025 1:29 PM CDT [facility] Urine Urine specimen obtained by clean catch procedure / Unknown Non-blood Collection / Unknown 01/01/2025 10:22 AM CDT 01/01/2025 10:22 AM CDT Dorian Scott Angela DO LAB MICROBIOLOGY - GENERA L ORDERABLES Final Result Performing Organization Address [facility] de Phone Number [facility] [address] [place] [phone] * C-Reactive Protein (01/01/2025 10:22 AM CDT) CRP <3 0 - 3 mg/L LAB CHEMISTRY METHOD 01/01/2025 11:06 AM CDT [facility] Blood Venous blood specimen / Unknown Venipuncture / Unknown 01/01/2025 10:22 AM CDT 01/01/2025 10:22 AM CDT Dorian Scott Angela DO LAB BLOOD ORDERABLES Sosa l Result Performing Organization Address City/[facility] de Phone Number [facility] [address] [place] [phone] * Magnesium (01/01/2025 10:22 AM CDT) Magnesium 2.1 1.7 - 2.8 mg/dL LAB CHEMISTRY METHOD 01/01/2025 11:40 AM CDT [facility] Blood Venous blood specimen / Unknown Venipuncture / Unknown 01/01/2025 10:22 AM CDT 01/01/2025 10:22 AM CDT Dorian Angela DO LAB BLOOD ORDERABLES Sosa l Result Performing Organization Address City/[facility]/ZIP Co de Phone Number [facility] [address] [place] [phone] * Lactate dehydrogenase (01/01/2025 10:22 AM CDT) Lactate Dehydrogenase 143 84 - 246 U/L LAB CHEMISTRY METHOD 01/01/2025 11:16 AM CDT [facility] Blood Venous blood specimen / Unknown Venipuncture / Unknown 01/01/2025 10:22 AM CDT 01/01/2025 10:22 AM CDT Dorian Angela DO LAB BLOOD ORDERABLES Sosa l Result Performing Organization Address [facility] Co de Phone Number [facility] [address] [place] [phone] * Iron (01/01/2025 10:22 AM CDT) Iron 44 37 - 170 ug/dL LAB CHEMISTRY METHOD 01/01/2025 11:18 AM CDT [facility] Blood Venous blood specimen / Unknown Venipuncture / Unknown 01/01/2025 10:22 AM CDT 01/01/2025 10:22 AM CDT Dorian Angela DO LAB BLOOD ORDERABLES Sosa l Result Performing Organization Address City/[facility]/ZIP Co de Phone Number [facility] [address] [place] [phone] * (ABNORMAL) Ferritin (01/01/2025 10:22 AM CDT) Ferritin 7(L) 8 - 252 ng/mL LAB CHEMISTRY METHOD 01/01/2025 11:21 AM CDT [facility] Blood Venous blood specimen / Unknown Venipuncture / Unknown 01/01/2025 10:22 AM CDT 01/01/2025 10:22 AM CDT Dorian Scott Angela DO LAB BLOOD ORDERABLES Sosa l Result Performing Organization Address City/[facility]/ZIP Co de Phone Number [facility] [address] [phone] * Vitamin B12 (01/01/2025 10:22 AM CDT) Vitamin B12 680 239 - 931 pg/mL LAB CHEMISTRY METHOD 01/01/2025 11:40 AM CDT [facility] Blood Venous blood specimen / Unknown Venipuncture / Unknown 01/01/2025 10:22 AM CDT 01/01/2025 10:22 AM CDT Dorian Angela DO LAB BLOOD ORDERABLES Sosa l Result Performing Organization Address [facility] Co de Phone Number [facility] [address] [phone] * Bilirubin, direct (01/01/2025 10:22 AM CDT) Bilirubin, Direct 0.08 0.00 - 0.20 mg/dL LAB CHEMISTRY METHOD 01/01/2025 11:08 AM CDT [facility] Blood Venous blood specimen / Unknown Venipuncture / Unknown 01/01/2025 10:22 AM CDT 01/01/2025 10:22 AM CDT Dorian Angela DO LAB BLOOD ORDERABLES Sosa l Result Performing Organization Address [facility]/ZIP Co de Phone Number [facility] [address] [phone] * (ABNORMAL) Comprehensive Metabolic Panel (01/01/2025 10:22 AM CDT) Glucose 89 70 - 100 mg/dL LAB CHEMISTRY METHOD 01/01/2025 11:13 AM CDT [facility] BUN 11 7 - 17 mg/dL LAB CHEMISTRY METHOD 01/01/2025 11:13 AM CDT [facility] Creatinine 0.75 0.52 - 1.04 mg/dl LAB CHEMISTRY METHOD 01/01/2025 11:13 AM CDT [facility] BUN/Creatinine Ratio 15 12 - 17 LAB CHEMISTRY METHOD 01/01/2025 11:13 AM CDT [facility] Sodium 136 135 - 145 mmol/L LAB CHEMISTRY METHOD 01/01/2025 11:13 AM CDT [facility] Potassium 4.2 3.6 - 5.0 mmol/L LAB CHEMISTRY METHOD 01/01/2025 11:13 AM CDT [facility] Chloride 108 101 - 111 mmol/L LAB CHEMISTRY METHOD 01/01/2025 11:13 AM [facility] Total Carbon Dioxide 27 22 - 30 mmol/L LAB CHEMISTRY METHOD 01/01/2025 11:13 AM [facility] Anion Gap 5(L) 9 - 17 mmol/L LAB CHEMISTRY METHOD 01/01/2025 11:13 AM [facility] Calcium 9.5 8.2 - 10.2 mg/dL LAB CHEMISTRY METHOD 01/01/2025 11:13 AM [facility] Total Protein, Serum 7.7 5.6 - 8.5 g/dL LAB CHEMISTRY METHOD 01/01/2025 11:13 AM [facility] Albumin 4.3 3.5 - 5.2 g/dL LAB CHEMISTRY METHOD 01/01/2025 11:13 AM [facility] GLOBULIN 3.4 2.1 - 3.8 g/dL LAB CHEMISTRY METHOD 01/01/2025 11:13 AM [facility] A/G Ratio 1.3(L) 1.4 - 1.7 LAB CHEMISTRY METHOD 01/01/2025 11:13 AM [facility] Bilirubin, Total 0.6 0.1 - 1.3 mg/dL LAB CHEMISTRY METHOD 01/01/2025 11:13 AM [facility] Alkaline Phosphatase 46 45 - 117 U/L LAB CHEMISTRY METHOD 01/01/2025 11:13 AM [facility] ALT (SGPT) 21 11 - 58 U/L LAB CHEMISTRY METHOD 01/01/2025 11:13 AM [facility] AST (SGOT) 13 9 - 55 U/L LAB CHEMISTRY METHOD 01/01/2025 11:13 AM [facility] eGFR >60 >=60 mL/min/1. 73 m2 LAB CHEMISTRY METHOD 01/01/2025 11:13 AM [facility] Blood Venous blood specimen / Unknown Venipuncture / Unknown 01/01/2025 10:22 AM CDT 01/01/2025 10:22 AM CDT us Dorian Angela DO LAB BLOOD ORDERABLES Sosa reed Result [facility] [address] [place] [phone] from Last 3 Months Additional Health Concerns Active Problems Noted Date Diagnosed Date Autogenerated Problem 02/18/2025 Insurance [employer] CROSS Advance Directives For more information, please contact: [phone] (7:30 AM - 5PM [facility], 7 days a week) * Full Code (Latest Code Status on File) Date Activated Date Inactivated Comments 02/01/2025 10:42 AM 02/01/2025 6:39 PM * Full Code Date Activated Date Inactivated Comments 07/22/2023 7:23 AM 07/22/2023 2:34 PM Care Teams Apple Press Operator Relationship Specialty Start Date End Date Sylwia Bryant FNP [address] [place], [place] [id number] PCP - General Family Medicine 06/02/23
--- OUTSIDE RECORDS SUMMARY | 2025-03-30 23:55 | XMS_ITS | Encounter Summary ---
Author Organization [facility] Address [address] [address] Phone Care Team Providers Care Senior Developer Name Role Phone Sylwia Bryant SR SOLUTIONS CONSULTANT Primary Care Provider + Reason for Visit * Reason Onset Date Comments regarding surgery 07/22/2023 Encounter Details Date Type Department Care Team (Late st Contact Info) Description 07/22/2023 Telephone [facility] [address] [place] [id number] New Kelly MD [address] [place] [address] regarding surgery Social History Tobacco Use Types Packs/Day Years Used Date Smoking Tobacco: Former Cigarettes 0.5 6 2 005 - 2012 Passive Smoke Exposure: Past Smokeless Tobacco: Never Alcohol Use Standard Drinks/Week Comments Not Currently 0 (1 standard drink = 0.6 oz pur e alcohol) PHQ-2 Answer Date Recorded Patient Health Questionnaire-2 Score 0 05/03/2023 Comments No Sex and Gender Information Value Date Recorded Sex Assigned at Not on file Legal Sex Female 11:24 AM CDT Gender Identity Not on file Sexual Orientation Not on file documented as of this encounter Miscellaneous Notes * Telephone Encounter - Devora Tapia MA - 07/26/2023 4:27 PM CST Called and spoke with pt, she is feeling much bettert UTER INSTALLATION ENGINEER * Telephone Encounter - Devora Tapia MA - 07/26/2023 4:07 PM CST Called pt, no answer, no vm UTER INSTALLATION ENGINEER * Telephone Encounter - Jhonny Lino - 07/22/2023 4:18 PM CST Pt had a procedure today and has a question. / Pt having bad gas pains and is this normal as it hurts, and hard to breath UTER INSTALLATION ENGINEER documented in this encounter Plan of Treatment Upcoming Encounters Date Type Department Care Team (Latest Contact Info) Description 04/03/2025 4:15 PM COMPUTER INSTALLATION ENGINEER Office Visit [facility] [address] [place] [address] New Kelly MD [address] [place] [id number] 04/23/2025 9:30 AM COMPUTER INSTALLATION ENGINEER Office Visit [facility] [address] [place] [id number] New Kelly MD [address] [place] [id number] 04/23/2025 10:00 AM COMPUTER INSTALLATION ENGINEER Appointment [facility] [address] [place] [id number] 05/03/2025 7:30 AM COMPUTER INSTALLATION ENGINEER Hospital Encounter OPERATING ROOM-[address] [address] New Kelly MD [address] [place] [phone] 05/03/2025 7:30 AM COMPUTER INSTALLATION ENGINEER - 05/03/2025 9:20 AM COMPUTER INSTALLATION ENGINEER Surgery [facility] [address] [address] New Kelly MD [address] [place] [address] ROBOTIC LAP HYSTERECTOMY [[id number] (CPT )] 06/14/2025 9:30 AM COMPUTER INSTALLATION ENGINEER Office Visit [facility] [address] [address] Gemma Ma NP [address] [address] Scheduled Procedures Name Priority Associated Diagnoses Date/Ti me ROBOTIC LAP HYSTERECTOMY Endometriosis Pelvic pain 05/03/2025 7:30 AM COMPUTER INSTALLATION ENGINEER ROBOTIC LAP SALPINGECTOMY Endometriosis Pelvic pain 05/03/2025 7:30 AM COMPUTER INSTALLATION ENGINEER documented as of this encounter Visit Diagnoses Not on filedocumented in this encounter Additional Health Concerns Infection Onset Date Last Indicated Resolved Time COVID-19 Rule-Out 02/07/2025 02/07/2025 02/07/2025 6:20 PM CDT documented as of this encounter Care Teams Senior Developer Relationship Specialty Start Date End Date Sylwia Bryant FNP [address] [place] [address] PCP - General Family Medicine 06/02/23 documented as of this encounter
--- NOTE | 2025-03-31 00:02 | USR_ITS ---
PROCEDURE INFORMATION: Exam: US Duplex Artery and Vein of the Abdominal and/or Reproductive Organs, Complete Exam date and time: 03/31/2025 1:16 AM Age: 35 years old Clinical indication: Pelvic pain; Prior surgery; Surgery date: 6+ months; Surgery type: Unsure of dates but patient said she has had surgery on her left ovary to remove (unknown) structure TECHNIQUE: Imaging protocol: Real-time duplex ultrasound scan of the arterial and venous flow of the abdominal and/or reproductive organs with B-mode, color Doppler flow and spectral waveform analysis with image documentation. Exam focused on the region of clinical concern. Complete exam. Duplex exam was performed to evaluate for vascular conditions. COMPARISON: No relevant prior studies available. FINDINGS: The uterus measures 10.9 cm in length. The uterus appears retroverted at this time. Suspect a possible fibroid in the posterior uterine body, measuring about 32 x 22 x 22 mm. Endometrial thickness is 13 mm. There is no fluid in the endometrial canal. There is a small amount of fluid in the cervical canal, about 2 mm in thickness. There is a very small amount of cul-de-sac fluid. The right ovary measures 29 x 23 x 24 mm, estimated volume 8.2 cc. The right ovary appears essentially unremarkable. The left ovary measures 36 x 29 x 33 mm, estimated volume 18.2 cc. Small simple appearing cyst or dominant follicle within the left ovary, measuring 24 x 21 x 23 mm. A physiologic cyst is likely, other etiologies not excluded. As clinically directed, follow up in one to three months may be useful to evaluate for resolution of a physiologic cyst, and to guard against a persistent/enlarging lesion. Ovarian blood flow was evaluated with color and spectral Doppler imaging. Arterial and venous blood flow detected within each ovary. Resistance index in the right ovary is 0.49. Resistance index in the left ovary is 0.33. The urinary bladder was not completely evaluated/imaged at this time. PROCEDURE INFORMATION: Exam: US Pelvis, Transvaginal, Non-Obstetric Exam date and time: 03/31/2025 1:16 AM Age: 35 years old Clinical indication: Pelvic pain; Prior surgery; Surgery date: 6+ months; Surgery type: Unsure of dates but patient said she has had surgery on her left ovary to remove (unknown) structure. Left lower quadrant pain. No irregular bleeding. TECHNIQUE: Imaging protocol: Real-time transvaginal pelvic (non-obstetric) ultrasound with image documentation. Transvaginal imaging was used for better evaluation of the endometrium, adnexa, and/or cervix. COMPARISON: No relevant prior studies available. FINDINGS: The uterus measures 10.9 cm in length. The uterus appears retroverted at this time. Suspect a possible fibroid in the posterior uterine body, measuring about 32 x 22 x 22 mm. Endometrial thickness is 13 mm. There is no fluid in the endometrial canal. There is a small amount of fluid in the cervical canal, about 2 mm in thickness. There is a very small amount of cul-de-sac fluid. The right ovary measures 29 x 23 x 24 mm, estimated volume 8.2 cc. The right ovary appears essentially unremarkable. The left ovary measures 36 x 29 x 33 mm, estimated volume 18.2 cc. Small simple appearing cyst or dominant follicle within the left ovary, measuring 24 x 21 x 23 mm. A physiologic cyst is likely, other etiologies not excluded. As clinically directed, follow up in one to three months may be useful to evaluate for resolution of a physiologic cyst, and to guard against a persistent/enlarging lesion. Ovarian blood flow was evaluated with color and spectral Doppler imaging. Arterial and venous blood flow detected within each ovary. Resistance index in the right ovary is 0.49. Resistance index in the left ovary is 0.33. The urinary bladder was not completely evaluated/imaged at this time. US/US transvaginal [id number] IMPRESSION: 1. Small simple appearing cyst or dominant follicle within the left ovary, measuring 24 x 21 x 23 mm. 2. Blood flow detected in each ovary. 3. Possible uterine fibroid, details above. 4. Very small amount of cul-de-sac fluid. 5. Other details/findings discussed above.
[2025-03-31 02:01] VITALS: BP 133/85; PULSE 62; RESP 16; TEMP 36.4; O2SAT 100
--- NOTE | 2025-03-31 02:47 | W.ED.FEMALGU ---
HPI - Female Genitourinary General: Chief complaint: Urogenital-Female Stated complaint: Doing an US for Ovarian Torsion Time Seen by Provider: 03/31/25 02:19 History of Present Illness: Patient is a 35-year-old female presenting with sharp pains in her side and significant pressure for the past four days, accompanied by nausea. She describes the pain as similar to what she experienced prior to her surgery two months ago (January 2025) for endometriosis. The patient reports that the pain is primarily located in her left lower quadrant, extending to her hip area with sciatic-like radiation down her leg. She notes that the pain worsens with movement and urination. The nausea is described as being from here up with associated visual dimming. She denies fever or vomiting. The patient was initially evaluated at [facility] where a CT scan showed suspicious features concerning for possible ovarian torsion, prompting referral for ultrasound evaluation. She has been self-medicating with 800mg ibuprofen and Pamprin for symptom management. Related Data Home Medications ?Medication ?Instructions ?Recorded ?Confirmed desvenlafaxine succinate 50 mg mg PO 01/02/25 03/11/25 tablet,extended release 24 hr methylphenidate HCl 5 mg tablet mg PO 01/02/25 03/11/25 metoprolol tartrate 25 mg tablet mg PO 01/02/25 03/11/25 Previous Rx's ?Medication ?Instructions ?Recorded epinephrine 0.3 mg/0.3 mL 0.3 mg (0.3 mL) IM Q10M PRN 07/28/21 injection, auto-injector (EpiPen anaphylaxis #2 ea 2-Luciano) phenazopyridine 100 mg tablet 100 mg PO TID PRN pain #60 tabs 01/23/25 (Pyridium) oxybutynin chloride 5 mg tablet 5 mg PO DAILY #90 tabs 01/31/25 hydrocodone 5 mg-acetaminophen 325 1 tab PO TID PRN pain #9 tabs 03/31/25 mg tablet ondansetron 4 mg disintegrating 4 mg PO Q6H PRN nausea and 03/31/25 tablet vomiting #14 tabs Allergies Allergy/AdvReac Type Severity Reaction Status Date / Time Alpha-Gal Allergy Unknown Unknown Verified 01/02/25 10:24 ([id number]-3,3-Gala bupropion (From Wellbutrin) Allergy ALGY-Difficulty Verified 01/02/25 07:26 Breathing [facility] ED PFSH: Medical History Endometriosis Allergic reaction Family History Father Hypertension Grandmother Stroke Diabetes Social History Smoking and tobacco/nicotine status: unknown if used tobacco/nicotine Alcohol intake: never Substance/Drug Use: never Adopted: No Caregiver/support person: No Lives independently: No Household members: spouse Marital status: service: No Current occupational status: employed Sexually active: Yes Do you think of yourself as: Straight/Heterosexual Current gender identity: Female Physical Exam Const: COMMON NORMALS: no acute distress GENERAL APPEARANCE: cooperative; not ill appearing and not frail appearing HENMT: COMMON NORMALS: normocephalic, atraumatic and Normal external nose present HEAD & SCALP: normocephalic and atraumatic FACE & SINUS: normal facial exam and face symmetric NOSE: Normal external nose present Eye: COMMON NORMALS: Equal, round and reactive pupils present and EOMs intact bilaterally PUPIL: Yes Equal, round and reactive pupils present Neck/C-Spine: GENERAL: Yes trachea midline Chest: CHEST: Yes Symmetrical chest wall rise Resp: COMMON NORMALS: normal respiratory effort, No retractions, No use of accessory muscles and clear to auscultation bilaterally AUSCULTATION: clear to auscultation bilaterally Cardio: COMMON NORMALS: regular rate and regular rhythm RATE: regular rate RHYTHM: regular rhythm GI: COMMON NORMALS: Normal to inspection, nondistended, normoactive bowel sounds present PALPATION: Yes Tenderness to palpation present (GI) Details: LLQ Extremity: COMMON NORMALS: no pedal edema Neuro: HALIE COMA SCALE: document GCS findings Halie coma scale eye opening: Spontaneous [place] coma scale verbal response: Orientated [place] coma scale motor response: Obey commands [place] coma scale total score: 15 SENSORY EXAM: Yes extremities (intact) Psych: COMMON NORMALS: speech normal SPEECH: Yes normal speech Skin: COMMON NORMALS: no rashes or lesions noted GENERAL SKIN EXAM: no rashes or lesions noted Course Vital Signs: Vital signs: Vital Signs Temperature 97.6 F 03/31/25 02:01 Pulse Rate 66 03/31/25 03:03 Respiratory Rate 17 03/31/25 03:03 Blood Pressure 134/85 03/31/25 03:03 Pulse Oximetry 98 03/31/25 03:03 Oxygen Delivery Me thod Room Air 03/31/25 03:03 MDM - Female Medical Decision Making Pain is manageable for the patient currently. Ultrasound the pelvis is negative for torsion. She has blood flow to both ovaries. Minimal amount of free fluid in the pelvis. No evidence of infection, etc. Symptomatic treatment. Home. She will follow-up with her surgeon in [place]. She is set to have a hysterectomy in April. XR interpretation done by ED provider, pending radiology final review Discharge Plan Discharge Patient Disposition: Home Clinical Impression: Pelvic pain Condition: Stable Prescriptions: New ondansetron 4 mg tablet,disintegrating 4 mg PO Q6H PRN (Reason: nausea and vomiting) Qty: 14 0RF Changed hydrocodone-acetaminophen 5-325 mg tablet 1 tab PO TID PRN (Reason: pain) Qty: 9 0RF No Action methylphenidate HCl 5 mg tablet PO metoprolol tartrate 25 mg tablet PO desvenlafaxine succinate 50 mg tablet extended release 24 hr PO phenazopyridine [Pyridium] 100 mg tablet 100 mg PO TID PRN (Reason: pain) Qty: 60 1RF Rx Instructions: take one tab up to three times daily oxybutynin chloride 5 mg tablet 5 mg PO DAILY Qty: 90 0RF Rx Instructions: Take 1 tab daily EpiPen 2-Luciano 0.3 mg/0.3 mL auto-injector 0.3 mg IM Q10M PRN (Reason: anaphylaxis) Qty: 2 0RF Rx Instructions: not to exceed 6 doses per episode Discharge Orders: Discharge ED (Routine); Ordered 03/31/25 Ordered By: Rony Henry Referrals: Sylwia Bryant [Primary Care Provider, Nurse Practitioner] - 1-3 days Patient Instructions: Pelvic Pain (ED), Opioid Safety, Pain Management, Patient Portal & Marlin Instructions Activity Restrictions/Additional Instructions: Return for any problems. Print Language: Macedonian Coding Level of Care Code ED Safety And Occupational Health Manager for Stephanie Elias
[2025-03-31 03:03] VITALS: BP 134/85; PULSE 66; RESP 17; O2SAT 98
== END 2025-03-31 03:05 | disposition home or self-care (01) ==
PROVIDERS: Emergency Provider Emergency Medicine; PCP Nurse Practitioner Family
DX: R10.20 Pelvic and perineal pain unspecified side (principal)
CPT/HCPCS: 76830; 99284